=== PATIENT | male | born 1945 | race Two or more races ===

== ENCOUNTER 2017-10-26 06:44 | Day surgery (SDC) | payer OTHER ==
[~2017-10-26] VITALS: Ht 172.7 cm; Wt 86.2 kg
[~2017-10-26 06:44] MED LIST: CALPHRON667 MG PO; CENTRUM SILVER1 EAC5 PO; KALEXATE15 GM PO; LASIX40 MG PO; NORVASC10 MG PO; PRILOSEC20 MG PO; TYLENOL REGULA325 MG PO; ZYLOPRIM300 MG PO; [UNRECOGNIZED DRUG - OTHER] SC
[2017-10-26 07:36] VITALS: BP 199/88
[2017-10-26 07:45] LABS: HEMATOCRIT 34.2 % (38.0-50.0); HEMOGLOBIN 11.3 G/DL (12.5-16.6); MCH 31.3 PG (29.0-34.0); MCV 94.7 FL (86-99); PLATELET COUNT 133 K/uL (156-360); RBC DIS.WIDTH-CV 13.1 % (11.8-14.6); RBC DIS.WIDTH-SD 45.1 % (39-53); RED BLOOD COUNT 3.61 M/uL (4.00-5.50); WHITE BLOOD COUNT 5.9 K/uL (4.1-10.2)
[2017-10-26 08:08] LABS: CHLORIDE 107 MEQ/L (99-109); CREATININE 6.5 MG/DL (0.6-1.3); GFR ESTIMATE (CALCULATED) 9 mL/min/ (58.99-99999); GLUCOSE 86 mg/dL (70-99); POTASSIUM 4.9 MEQ/L (3.7-5.4); SODIUM 143 MEQ/L (136-147); UREA NITROGEN (BUN) 41 mg/dL (9-23)
[2017-10-26 13:43] VITALS: BP 186/81
[2017-10-26 14:12] VITALS: BP 196/81
== END 2017-10-26 14:12 | disposition home or self-care (01) ==
LOC: SDC 06:44
PROVIDERS: Surgery
PROC: 3E03317 Introduction of Other Thrombolytic into Peripheral Vein, Percutaneous Approach (ICD-10-PCS; principal; 2017-10-26)
PROC: 05BC0ZZ Excision of Left Basilic Vein, Open Approach (ICD-10-PCS; principal; 2017-10-26)
PROC: 031809D Bypass Left Brachial Artery to Upper Arm Vein with Autologous Venous Tissue, Open Approach (ICD-10-PCS; principal; 2017-10-26)
DX: I12.0 Hypertensive chronic kidney disease with stage 5 chronic kidney disease or end stage renal disease (principal); E11.22 Type 2 diabetes mellitus with diabetic chronic kidney disease; N18.6 End stage renal disease; Z99.2 Dependence on renal dialysis; Z87.891 Personal history of nicotine dependence; E78.00 Pure hypercholesterolemia, unspecified
CPT/HCPCS: 80048; 82948; 85027; 87641; 93005; J0690; J1170; J1644; J2720; S0020